=== PATIENT | female | born 1995 | race African-American/Black ===

== ENCOUNTER 2018-07-05 17:28 | Emergency (ER) | payer OTHER ==
[~2018-07-05] VITALS: Ht 167.6 cm; Wt 68.0 kg
[2018-07-05] MEDS ORDERED: TRIAMCINOLONE A80 G2 TOP (18:20)
[2018-07-05] MEDS ORDERED: HYDROXYZINE HCL10 M1 PO (18:20)
[2018-07-05] MEDS ORDERED: MEDROLDOSEPACK PO (18:38)
[2018-07-05 19:08] VITALS: BP 123/69
== END 2018-07-05 19:08 | disposition home or self-care (01) ==
LOC: ER 17:28
DX: L50.9 Urticaria, unspecified (principal)

== ENCOUNTER 2018-08-03 19:22 | Emergency (ER) | payer OTHER ==
[~2018-08-03] VITALS: Ht 167.6 cm; Wt 68.0 kg
[~2018-08-03 19:22] MED LIST: HYDROXYZINE HCL10 M1 PO; MEDROLDOSEPACK PO; TRIAMCINOLONE A80 G2 TOP
[2018-08-03] MEDS ORDERED: PREDNISONE 20 M20 MG PO (20:24)
[2018-08-03] MEDS ORDERED: PEPCID20 MG PO (20:24)
[2018-08-03 20:45] VITALS: BP 121/64
== END 2018-08-03 21:00 | disposition home or self-care (01) ==
LOC: ER 19:22
DX: L50.9 Urticaria, unspecified (principal)